=== PATIENT | male | born 1970 | race Caucasian/White ===

== ENCOUNTER 2023-10-10 11:26 | Emergency (ER) | payer MEDICARE, MEDICAID ==
[~2023-10-10] VITALS: Ht 172.7 cm; Wt 81.8 kg
[2023-10-10 11:29] VITALS: TEMP 98.1
[2023-10-10 11:51] LABS: BASOPHILS % (AUTO) 0.2 % (0-1); EOSINOPHILS # (AUTO) 0.1 X10'3 (0-0.9); EOSINOPHILS % (AUTO) 1.3 % (0-6); HEMATOCRIT 42.7 % (42.0-52.0); HEMOGLOBIN 14.6 g/dl (14.0-17.9); LYMPHOCYTES # (AUTO) 1.8 X10'3 (1.1-4.8); LYMPHOCYTES % (AUTO) 19.6 % (21-51); MEAN CORPUSCULAR HEMOGLOBIN 30.8 PG (27.0-31.0); MEAN CORPUSCULAR HGB CONC 34.2 g/dL (33.0-36.5); MEAN CORPUSCULAR VOLUME 90.1 FL (78-98); MEAN PLATELET VOLUME 8.6 FL (7.4-10.4); MONOCYTES # (AUTO) 0.5 X10'3 (0-0.9); MONOCYTES % (AUTO) 5.9 % (2-12); NEUTROPHILS # (AUTO) 6.8 X10'3 (1.8-7.7); PLATELET COUNT 233 X10'3 (140-440); RED BLOOD COUNT 4.73 X10'6 (4.70-6.10); WHITE BLOOD COUNT 9.3 X10'3 (4.5-11.0)
[2023-10-10 12:12] LABS: ANION GAP 14 (8-16); BLOOD UREA NITROGEN 19 MG/DL (7-18); BUN/CREATININE RATIO 14.7 (10.0-20.0); CALCIUM 9.3 MG/DL (8.5-10.1); CHLORIDE 102 MMOL/L (99-107); CREATININE 1.29 MG/DL (0.60-1.10); GLUCOSE 112 MG/DL (70-104); POTASSIUM 3.9 MMOL/L (3.5-5.1); PRO BRAIN NATRIURETIC PEPTIDE 50 PG/ML (0-125); SODIUM 142 MMOL/L (135-145); TOTAL CARBON DIOXIDE 26.2 MMOL/L (24-32); eCRCL 63 ML/MIN; eGFR 58 ML/MIN
[2023-10-10] MEDS: methylPREDNISolone sod succ 125mg/2ml vial IV ONE (12:24)
[2023-10-10] MEDS: ipratropium/albuterol 3ml nebule NEB ONE (12:24)
[2023-10-10] MEDS: benzonatate 100mg capsule PO ONE (12:24)
[2023-10-10 12:30] VITALS: PULSE 97; RESP 26; O2SAT 99
[2023-10-10 12:33] VITALS: PULSE 92; RESP 22; O2SAT 100
[2023-10-10 13:00] LABS: D-DIMER 0.71 MG/L FEU (0-0.50)
[2023-10-10 13:45] VITALS: BP 125/84; PULSE 85; RESP 20; O2SAT 97
[2023-10-10] MEDS: ibuprofen 200mg tablet PO ONE (13:45)
[2023-10-10 14:04] LABS: URINE AMPHETAMINE SCREEN NEGATIVE (Neg); URINE BARBITUATE SCREEN NEGATIVE (Neg); URINE BENZODIAZEPINES SCREEN NEGATIVE (Neg); URINE CANNABINOID SCREEN POSITIVE (Neg); URINE COCAINE SCREEN NEGATIVE (Neg); URINE METHADONE SCREEN NEGATIVE (Neg); URINE OPIATE SCREEN POSITIVE (Neg); URINE PHENCYCLIDINE SCREEN NEGATIVE (Neg)
[2023-10-10] MEDS ORDERED: iohexol 350MG/ML 100ml bottle IV ONE (14:23)
[2023-10-10] MEDS ORDERED: ALBU8HFA PO (16:14)
[2023-10-10] MEDS ORDERED: AMOX-580 PO (16:14)
[2023-10-10] MEDS ORDERED: PRED20TA PO (16:14)
[2023-10-10] MEDS: CefTRIAXone 2gm/D5W 50ml BAG 50 ML IV ONE (16:38)
[2023-10-10] MEDS: azithromycin/NS 500mg/250ml 250 ML IV ONE (16:38)
== END 2023-10-10 17:09 | disposition home or self-care (01) ==
LOC: ER 11:27
DX: J18.9 Pneumonia, unspecified organism (principal); Z20.822 Contact with and (suspected) exposure to COVID-19; R05.9 Cough, unspecified; R07.89 Other chest pain; E78.00 Pure hypercholesterolemia, unspecified; I10 Essential (primary) hypertension; J44.9 Chronic obstructive pulmonary disease, unspecified; E11.9 Type 2 diabetes mellitus without complications; M19.90 Unspecified osteoarthritis, unspecified site
CPT/HCPCS: 36415; 71045; 71275; 80048; 80305; 82948; 83605; 83880; 84484; 85025; 85379; 87040; 87502; 87503; 87811; 93005; 94640; 96365; 96368; 96375; 99285; J0456; J0696; J2930; J3490; Q9967; 94760